=== PATIENT | male | born 1935 | race Caucasian/White ===

== ENCOUNTER → 2016-06-12 | Outpatient (CLI) | payer MEDICARE, BC | END | disposition home or self-care (01) | LOC: CVU 08:55 | PROVIDERS: ATTEND Internal Medicine Cardiovascular Disease | DX: I08.3 Combined rheumatic disorders of mitral, aortic and tricuspid valves (principal); I25.10 Atherosclerotic heart disease of native coronary artery without angina pectoris; I10 Essential (primary) hypertension; I25.2 Old myocardial infarction; E11.8 Type 2 diabetes mellitus with unspecified complications; E78.5 Hyperlipidemia, unspecified; Z87.891 Personal history of nicotine dependence | CPT/HCPCS: 93306; 93880 ==

== ENCOUNTER 2020-11-22 09:41 | Outpatient (CLI) | payer MEDICARE | END 2020-11-22 23:59 | disposition home or self-care (01) | LOC: CVU 09:41 → RAD 23:59 | PROVIDERS: ATTEND Internal Medicine | DX: Z01.810 Encounter for preprocedural cardiovascular examination (principal); I65.23 Occlusion and stenosis of bilateral carotid arteries; R06.02 Shortness of breath; R91.1 Solitary pulmonary nodule; J98.11 Atelectasis; I70.0 Atherosclerosis of aorta | CPT/HCPCS: 71250; 74176; 93880 ==